=== PATIENT | male | born 1995 | race Caucasian/White ===

== ENCOUNTER 2016-04-25 14:12 | Emergency (ER) | payer BC ==
[2016-04-25 14:38] VITALS: BP 124/69
--- NOTE | 2016-04-25 15:18 | UC ---
Skin Complaint HPI - HPI Summary HPI Summary: Small itchy bumps slowly spreading up body x 1 month. First noticed on backs of thighs, now all over, especially itchy on wrists, armpits, and hips/waist. Lives with parents and sisters and no one has similar symptoms; stays at hotels often. - History of Current Complaint Chief Complaint: UCRash Time Seen by Provider: 04/25/16 15:05 Stated Complaint: RASH Hx Obtained From: Patient Onset/Duration: Gradual Onset, Lasting Weeks Timing: Constant Onset Severity: Mild Current Severity: Moderate Location: Generalized Character: Pruritus Aggravating: Nothing Alleviating: Nothing Associated Signs & Symptoms: Positive: Rash - Allergy/Home Medications Allergies/Adverse Reactions: Allergies Allergy/AdvReac Type Severity Reaction Status Date / Time No Known Allergies Allergy Verified 04/25/16 14:38 Review of Systems Constitutional: Negative Skin: Rash Eyes: Negative ENT: Negative Respiratory: Negative Cardiovascular: Negative Gastrointestinal: Negative Genitourinary: Negative Motor: Negative Neurovascular: Negative Musculoskeletal: Negative Neurological: Negative Psychological: Negative All Other Systems Reviewed And Are Negative: Yes PMH/Surg Hx/FS Hx/Imm Hx Previously Healthy: Yes - Surgical History Surgical History: Yes Surgery Procedure, Year, and Place: wisdom teeth - Family History Known Family History: Negative: Blood Disorder - Social History Occupation: Employed Full-time Lives: With Family Alcohol Use: Occasionally Substance Use Type: None Smoking Status (MU): Never Smoked Tobacco Amount Used/How Often: 1 can/ week Physical Exam Triage Information Reviewed: Yes Appearance: Well-Appearing, No Pain Distress, Well-Nourished Vital Signs: Initial Vital Signs Temp 98.5 F 04/25/16 14:27 Pulse 72 04/25/16 14:27 Resp 18 04/25/16 14:27 BP 124/69 04/25/16 14:27 Pulse Ox 100 04/25/16 14:27 Vital Signs Reviewed: Yes Eye Exam: Normal Eyes: Positive: Conjunctiva Clear ENT Exam: Normal ENT: Positive: Normal ENT inspection, Hearing grossly normal, Pharynx normal, TMs normal Dental Exam: Normal Neck exam: Normal Neck: Positive: Supple, Nontender, No Lymphadenopathy Respiratory Exam: Normal Respiratory: Positive: Chest non-tender, Lungs clear, Normal breath sounds, No respiratory distress, No accessory muscle use Cardiovascular Exam: Normal Cardiovascular: Positive: RRR, No Murmur Musculoskeletal Exam: Normal Neurological Exam: Normal Psychological Exam: Normal Skin Exam: Other - pinpoint itchy bumps all over Course/Dx - Diagnoses Provider Diagnoses: scabies Discharge - Discharge Plan Condition: Stable Disposition: HOME Prescriptions: Permethrin [Elimite] 5 % TOPICAL ONCE #1 bottle Patient Education Materials: Scabies (ED) Additional Instructions: See your primary care provider or return here if symptoms persist longer than 10 days.
== END 2016-04-25 15:35 | disposition home or self-care (01) ==
LOC: UCCORT 14:12
DX: B86 Scabies (principal); F17.220 Nicotine dependence, chewing tobacco, uncomplicated
CPT/HCPCS: 99202; G0463

== ENCOUNTER 2017-10-27 17:51 | Emergency (ER) | payer BC ==
[2017-10-27 18:23] VITALS: BP 121/73
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
== END 2017-10-27 19:47 | disposition home or self-care (01) ==
LOC: UCCORT 17:51
DX: M54.6 Pain in thoracic spine (principal)
CPT/HCPCS: 72070; 72100; 99211; G0463